=== PATIENT | female | born 2000 | race Caucasian/White ===

== ENCOUNTER 2020-05-13 16:50 | Inpatient (IN) | payer OTHER | END 2020-05-19 16:58 | disposition home or self-care (01) | DRG 788 | LOC: OBS/DEL 16:50 → LDR 05-14 16:54 → OB/GYN 05-15 16:53 | PROVIDERS: ADMIT Obstetrics & Gynecology Obstetrics | PROC: 10D00Z1 Extraction of Products of Conception, Low, Open Approach (ICD-10-PCS; principal; 2020-05-16) | PROC: 4A1HXFZ Monitoring of Products of Conception, Cardiac Rhythm, External Approach (ICD-10-PCS; 2020-05-16) | PROC: 3E033VJ Introduction of Other Hormone into Peripheral Vein, Percutaneous Approach (ICD-10-PCS; 2020-05-16) | DX: O13.4 Gestational [pregnancy-induced] hypertension without significant proteinuria, complicating childbirth (principal); Z3A.40 40 weeks gestation of pregnancy; Z37.0 Single live birth ==